=== PATIENT | female | born 1980 | race African-American/Black ===

== ENCOUNTER 2019-03-15 07:38 | Emergency (ER) | payer OTHER ==
[~2019-03-15] VITALS: Ht 160 cm; Wt 74.4 kg
[2019-03-15 08:09] LABS: INFLUENZA A ANTIGEN Negative (Negative)
[2019-03-15 08:40] VITALS: BP 122/89
== END 2019-03-15 08:42 | disposition home or self-care (01) ==
LOC: M.ERS 07:38
PROVIDERS: Family Medicine
DX: J10.1 Influenza due to other identified influenza virus with other respiratory manifestations (principal)